=== PATIENT | male | born 1990 | race Caucasian/White ===

== ENCOUNTER 2017-03-30 10:31 | Emergency (ER) | payer OTHER ==
[2017-03-30 12:49] VITALS: BP 125/84
--- NOTE | 2017-03-30 12:53 | ER Document Report ---
ED Allergic Reaction - General Chief Complaint: Allergic Reaction Stated Complaint: INSECT BITE Time Seen by Provider: 03/30/17 12:50 Mode of Arrival: Ambulatory Information source: Patient Notes: Patient states that several hours before arrival he was stung on the left hand by a wasp. He denies ever having any trouble with breathing or swallowing. He states when he arrived in urgent care he had hives "all over". At urgent care patient was given steroids and an epinephrine injection. He was then referred to the emergency department. Patient states that he now feels "fine". Patient has some mild pain in the left hand. It is constant. It is worse when touched and better when left alone. It does radiate up his left arm. Patient states he does not currently have an EpiPen. Past Medical History - Social History Smoking Status: Unknown if Ever Smoked Frequency of alcohol use: Occasional Drug Abuse: None Family History: Reviewed & Not Pertinent Renal/ Medical History: Denies: Hx Peritoneal Dialysis Review of Systems - Review of Systems Constitutional: denies: Chills, Fever Cardiovascular: denies: Chest pain, Dyspnea Respiratory: denies: Cough, Hemoptysis, Short of breath Physical Exam - Vital signs Vitals: Temp Pulse Resp BP Pulse Ox 98.5 F 72 16 123/72 100 03/30/17 11:13 03/30/17 11:13 03/30/17 11:13 03/30/17 11:13 03/30/17 11:13 Interpretation: Normal - General General appearance: Appears well, Alert - HEENT Head: Normocephalic, Atraumatic Eyes: Normal Pupils: PERRL - Respiratory Respiratory status: No respiratory distress Chest status: Nontender Breath sounds: Normal Chest palpation: Normal - Cardiovascular Rhythm: Regular Heart sounds: Normal auscultation Murmur: No - Abdominal Inspection: Normal Distension: No distension Bowel sounds: Normal Tenderness: Nontender Organomegaly: No organomegaly - Back Back: Normal, Nontender - Extremities General upper extremity: Normal inspection, Nontender, Normal color, Normal ROM , Normal temperature General lower extremity: Normal inspection, Nontender, Normal color, Normal ROM , Normal temperature, Normal weight bearing. No: Pierce's sign - Neurological Neuro grossly intact: Yes Cognition: Normal Orientation: AAOx4 Zebulon Coma Scale Eye Opening: Spontaneous Hollie Coma Scale Verbal: Oriented Hollie Coma Scale Motor: Obeys Commands Hollie Coma Scale Total: 15 Speech: Normal Motor strength normal: LUE, RUE, LLE, RLE Sensory: Normal - Psychological Associated symptoms: Normal affect, Normal mood - Skin Skin Temperature: Warm Skin Moisture: Dry Skin Color: Other - Skin exam at this time is unremarkable other than the dorsum of the left hand. Dorsum left hand has some mild swelling and erythema. Course - Vital Signs Vital signs: Temp Pulse Resp BP Pulse Ox 98.5 F 60 16 125/84 100 03/30/17 11:13 03/30/17 12:48 03/30/17 12:48 03/30/17 12:48 03/30/17 12:48 Discharge - Discharge Clinical Impression: Urticaria, Hymenoptera sting Condition: Stable Disposition: HOME, SELF-CARE Instructions: Acute Urticaria ([facility]) Additional Instructions: Please carry an EpiPen with you at all times. Your blood pressure was mildly elevated today. This is most likely due to receiving epinephrine. However, you need to have your blood pressure rechecked within 1 week by your primary care physician or a medical provider. Prescriptions: Epinephrine [Epipen Jr 0.15 mg/0.3 mL AutoInject] 1 ea IM ASDIR PRN #1 autoinjector PRN Reason: Prednisone [Deltasone 20 mg Tablet] 3 tab PO DAILY 5 Days tablet Forms: Elevated Blood Pressure, Return to Work Referrals: GHADA CELESTE MD [[facility]ITY BASED STAFF] - 04/06/17 (follow up within one week )
== END 2017-03-30 14:15 | disposition home or self-care (01) ==
LOC: ER 10:31
DX: T63.461A Toxic effect of venom of wasps, accidental (unintentional), initial encounter (principal); L50.8 Other urticaria
CPT/HCPCS: 99282